=== PATIENT | female | born 1995 | race Hispanic/Latino ===

== ENCOUNTER 2019-09-10 01:39 | Emergency (ER) | payer MEDICAID, OTHER ==
[2019-09-10] MEDS ORDERED: LIDOCAINE HCL 2% 20ML ONE (02:35)
[2019-09-10] MEDS ORDERED: SULFAMETHOX-TMP DS 800/160 TAB ONE (03:50)
== END 2019-09-10 04:06 | disposition home or self-care (01) ==
LOC: EDH 01:39
DX: L03.031 Cellulitis of right toe (principal)
CPT/HCPCS: 10060; 99283; J3490